=== PATIENT | male | born 2000 | race Two or more races ===

== ENCOUNTER 2021-01-12 13:42 | Emergency (ER) | payer BC, SELFPAY ==
[2021-01-12 13:52] VITALS: BP 146/91; PULSE 101; RESP 16; TEMP 36.9; O2SAT 100
--- NOTE | 2021-01-12 14:06 | ED.ABDPAIN ---
HPI - Abdominal Pain General Chief Complaint: Abdominal Pain Stated Complaint: Abdominal Pain Source: patient Mode of arrival: ambulatory Limitations: no limitations History of Present Illness HPI narrative: Patient is a 20-year-old male who presents with mother. Patient reports going out to eat earlier and having immediate abdominal pain and diarrhea. He reports initial pain as 9/10, reports 4/10 after diarrhea, denies nause or vomiting. Reports knot in stomach. Patient reports symptoms started approximately 1 hour ago. Patient denies all other complaints at this time. He denies significant medical history. MD elicited complaint: abdominal pain Related Data Allergies Allergy/AdvReac Type Severity Reaction Status Date / Time No Known Allergies Allergy Unverified 07/17/17 15:05 Review of Systems Review of Systems: Narrative: CONSTITUTIONAL: Denies fever, chills, or sweats. EYES: Denies visual changes, redness, or discharge. ENT: Denies rhinorrhea, congestion, sore throat, or otalgia. CARDIOVASCULAR: Denies chest pain, palpitations, or edema. RESPIRATORY: Denies cough or dyspnea. GASTROINTESTINAL: Reports abdominal cramping and diarrhea GENITOURINARY: Denies dysuria or hematuria. SKIN: Denies rash or itching. MUSCULOSKELETAL: Denies back pain, joint pain, or myalgia. NEUROLOGIC: Denies headache, numbness, dizziness, or weakness. PSYCHIATRIC: Denies anxiety or depression. [facility] Social History Social History (Updated 01/12/21 @ 14:11 by MONSTER Cabral) Smoking status: Never smoker Alcohol intake: never Substance use: never Living arrangements: with family Occupation/Education: occupation Comments At the time of signature, I have reviewed and agree with nursing past medical, surgical, social, and family history unless otherwise noted. Please see nursing chart for further information. There is no relevant family history pertinent to the presenting complaint. Exam Narrative: Exam Narrative: GENERAL: Well-appearing, well-nourished, and in no acute distress. HEAD: Normocephalic, atraumatic. EYES: EOMI. No redness or drainage. Conjunctiva are normal. ENT: Mucous membranes pink and moist. Nares clear. No rhinorrhea. Throat normal. Uvula midline. CHEST: No respiratory distress. Clear to auscultation. HEART: Regular rate and rhythm. No murmur appreciated. Normal peripheral pulses. GI: Soft, nontender without rebound, or guarding. No distention. Bowel sounds normal in all quadrants. MUSCULOSKELETAL: No bony tenderness. EXTREMITIES: Normal range of motion. No edema. SKIN: Warm, dry, no rash. NEURO: No focal deficits. Alert and oriented x3. Gait steady. PSYCH: Normal affect. No signs of depression or anxiety. Course Vital Signs Vital signs: Vital Signs Temperature 36.9 C 01/12/21 13:52 Pulse Rate 101 H 01/12/21 13:52 Respiratory Rate 16 01/12/21 13:52 Blood Pressure 146/91 H 01/12/21 13:52 Pulse Oximetry 100 01/12/21 13:52 Temperature 36.9 C 01/12/21 13:52 Pulse Rate 101 H 01/12/21 13:52 Respiratory Rate 16 01/12/21 13:52 Blood Pressure 146/91 H 01/12/21 13:52 Pulse Oximetry 100 01/12/21 13:52 Reviewed. Patient has been instructed to follow-up with his PCP regarding his blood pressure. MDM - Abdominal Pain MDM Narrative Medical decision making narrative: Discussed with patient abdominal pain most likely related to food earlier today. Patient given famotidine in urgent care, discussed staying well-hydrated and bland food choices for the next 24 hours. Patient aware of red flags in which she would need to be seen in the emergency department. Patient agrees with plan of care. Patient is stable for discharge home with outpatient follow-up. Differential Diagnosis Differential diagnosis: Likely abdominal pain, acute appendicitis, calculus of kidney, constipation and gastroenteritis Critical Care Time Critical Care Time Critical Care Time: No Discharge Plan Di
[2021-01-12] MEDS: FAMOTIDINE 20 MG TABLET PO (14:24)
== END 2021-01-12 14:20 | disposition home or self-care (01) ==
PROVIDERS: Emergency Provider Nurse Practitioner; PCP Family Medicine
DX: R10.9 Unspecified abdominal pain (principal); R19.7 Diarrhea, unspecified
CPT/HCPCS: 99203; A9270; G0463

== ENCOUNTER 2024-07-29 08:18 | Outpatient (CLI) | payer BC, SELFPAY ==
--- NOTE | ~2024-07-29 | US_ITS ---
Left posterior neck ULTRASOUND Ordering provider: LASHON East History: . R22.1 - Localized swelling, mass and lump, neck . Comparison: None. FINDINGS/impression: Lymph node is seen in the subcutaneous tissue measuring 2.6 x 2 x 0.5 cm. Clinical correlation advise d. Reviewed, dictated and finalized at location A. ENT ASSISTANT
== END 2024-07-29 08:19 | disposition home or self-care (01) ==
LOC: GOSHIMG 08:18
PROVIDERS: PCP Clinical Nurse Specialist; Visit Provider Clinical Nurse Specialist
DX: R22.1 Localized swelling, mass and lump, neck (principal)
CPT/HCPCS: 76536

== ENCOUNTER 2024-08-16 13:01 | Outpatient (CLI) | payer BC, SELFPAY ==
--- NOTE | ~2024-08-16 | CT_ITS ---
EXAMINATION: CT soft tissue neck wo con DATE: 08/16/2024 13:15 INDICATION: Localized enlarged lymph nodes. TECHNIQUE: Computed tomography (CT) of the neck was performed without intravenous contrast. Automated exposure control and iterative reconstruction technique were employed. The dose-length product was 3 99.24 mGy-cm. COMPARISON: Ultrasound 07/29/2024 FINDINGS: There are no pathologically enlarged lymph nodes. There is no abnormal mass. The mastoid ai r cells are normal. The paranasal sinuses are clear. There is kyphosis of cervical spine. IMPRESSION: 1. No abnormal lymphadenopathy. Reviewed, dictated and finalized at location A. C PUBLISHER
== END 2024-08-16 13:02 | disposition home or self-care (01) ==
LOC: GOSHIMG 13:02
PROVIDERS: PCP Clinical Nurse Specialist; Visit Provider Clinical Nurse Specialist
DX: R59.0 Localized enlarged lymph nodes (principal)
CPT/HCPCS: 70490